=== PATIENT | male | born 1965 | race African-American/Black ===

== ENCOUNTER 2019-03-02 19:54 | Inpatient (IN) | payer MEDICAID ==
[~2019-03-02] VITALS: Ht 188 cm; Wt 70.3 kg
[2019-03-02 20:50] LABS: BASOPHILS % 0.7 % (0.0-2.0); EOSINOPHILS % 1.5 % (0.0-5.0); HEMOGLOBIN. 9.6 g/dL (14.0-18.0); LYMPHOCYTES % 19.6 % (20.0-50.0); MEAN CORPUSCULAR HEMOGLOBIN 26.1 pg (28.0-32.0); MEAN CORPUSCULAR VOLUME 84.5 fL (80.0-94.0); MEAN PLATELET VOLUME 7.5 fl (7.4-10.4); MONOCYTES % 5.8 % (2.0-8.0); NEUTROPHILS % 72.4 % (40.0-76.0); PLATELET 272 x1000/uL (130-400); RED BLOOD CELL COUNT 3.66 mill/uL (4.7-6.1); RED CELL DISTRIBUTION WIDTH 25.3 % (11.6-14.6)
[2019-03-02 21:10] LABS: CHLORIDE 105 mEq/L (98-107)
[2019-03-02 21:13] LABS: PLATELET ESTIMATE NORMAL
[2019-03-02 21:15] LABS: ETHANOL BLOOD < 10 mg/dL
[2019-03-02] MEDS ORDERED: LEVETIRACETAM 500MG PREMIX 100 ML IV ONE (21:15)
[2019-03-02 23:50] VITALS: BP 118/82
[2019-03-03] MEDS ORDERED: LORAZEPAM 2MG/ML CPJ IV PRN (01:15)
[2019-03-03] MEDS: DEXT 5%/0.45% NACL 1000ML 1,000 ML IV SCH ×2 (02:16→15:53)
[2019-03-03 04:00] VITALS: BP 122/81
[2019-03-03 06:42] LABS: BASOPHILS % 0.8 % (0.0-2.0); EOSINOPHILS % 1.7 % (0.0-5.0); HEMATOCRIT. 26.6 % (42.0-52.0); HEMOGLOBIN. 8.5 g/dL (14.0-18.0); LYMPHOCYTES % 24.6 % (20.0-50.0); MEAN CORPUSCULAR VOLUME 81.6 fL (80.0-94.0); MEAN PLATELET VOLUME 7.2 fl (7.4-10.4); MONOCYTES % 6.5 % (2.0-8.0); NEUTROPHILS % 66.4 % (40.0-76.0); PLATELET 228 x1000/uL (130-400); RED BLOOD CELL COUNT 3.26 mill/uL (4.7-6.1); RED CELL DISTRIBUTION WIDTH 25.1 % (11.6-14.6)
[2019-03-03] MEDS: MORPHINE SULFATE 2 MG/ML CPJ (NOT FOR IM USE) IV PRN ×4 (06:48→20:05)
[2019-03-03 06:50] LABS: CHLORIDE 108 mEq/L (98-107)
[2019-03-03 08:00] VITALS: BP 134/83
[2019-03-03] MEDS: LEVETIRACETAM 500 MG in SODIUM CHLORIDE 0.9% 100 ML IV SCH ×2 (09:18→20:05)
[2019-03-03] MEDS: ENOXAPARIN 40MG/0.4ML SYR SUBCUT SCH (09:18)
[2019-03-03 12:00] VITALS: BP 128/83
[2019-03-03] MEDS: LACTULOSE 20G/30ML UDC PO PRN (13:00)
[2019-03-03 16:00] VITALS: BP 122/74
[2019-03-03 20:00] VITALS: BP 130/87
[2019-03-03 22:58] LABS: CLARITY URINE CLEAR (CLEAR); COLOR URINE YELLOW (YELLOW); KETONES URINE NEGATIVE (NEGATIVE); LEUKOCYTE ESTERASE URINE NEGATIVE (NEGATIVE); NITRITE URINE NEGATIVE (NEGATIVE); OCCULT BLOOD URINE NEGATIVE (NEGATIVE); PH URINE 6.5 (4.5-8.0); PROTEIN URINE NEGATIVE (NEGATIVE); SPECIFIC GRAVITY URINE 1.008 (1.005-1.030); UROBILINOGEN URINE 0.2 E.U./dL (0.2-1.0)
[2019-03-03 23:09] LABS: CANNABINOID URINE SCREEN PRESUMTIVE POSITIVE (NEGATIVE)
[2019-03-03 23:10] LABS: *AMPHETAMINES SCREEN URINE NEGATIVE (NEGATIVE); *BARBITURATES SCREEN URINE NEGATIVE (NEGATIVE); *BENZODIAZEPINES SCREEN URINE PRESUMTIVE POSITIVE (NEGATIVE); *COCAINE SCREEN URINE NEGATIVE (NEGATIVE); METHADONE URINE SCREEN NEGATIVE (NEGATIVE); OPIATES URINE SCREEN PRESUMTIVE POSITIVE (NEGATIVE)
[2019-03-03 23:11] LABS: PHENCYCLIDINE URINE SCREEN NEGATIVE (NEGATIVE)
[2019-03-04] VITALS: BP 122/86
[2019-03-04] MEDS: MORPHINE SULFATE 2 MG/ML CPJ (NOT FOR IM USE) IV PRN ×5 (01:01→20:28)
[2019-03-04 04:00] VITALS: BP 120/87
[2019-03-04] MEDS: DEXT 5%/0.45% NACL 1000ML 1,000 ML IV SCH (05:30)
[2019-03-04 08:00] VITALS: BP_SYST 115; BP_SYST 129; BP_DIAS 72; BP_DIAS 78
[2019-03-04] MEDS: ENOXAPARIN 40MG/0.4ML SYR SUBCUT SCH (09:04)
[2019-03-04] MEDS: LEVETIRACETAM 500 MG in SODIUM CHLORIDE 0.9% 100 ML IV SCH ×2 (09:04→21:38)
[2019-03-04] MEDS ORDERED: GADOBENATE DIMEGLUMINE 529 MG/ML 10ML IV ONE (11:11)
[2019-03-04 12:00] VITALS: BP 129/79
[2019-03-04 16:00] VITALS: BP 136/79
[2019-03-04] MEDS ORDERED: HYDRALAZINE 20MG/ML VIAL IV PRN (16:00)
[2019-03-04] MEDS ORDERED: DEXAMETHASONE 4MG/ML 1ML VIAL IV SCH (18:00)
[2019-03-04] MEDS ORDERED: NON FORMULARY PATIENT HOME MED XX SCH (19:30)
[2019-03-04 20:00] VITALS: BP 109/67
[2019-03-04] MEDS: DEXAMETHASONE 4MG/ML 1ML VIAL IV SCH (21:37)
[2019-03-05] VITALS: BP 117/76
[2019-03-05] MEDS: LACTULOSE 20G/30ML UDC PO PRN ×2 (01:13→14:27)
[2019-03-05] MEDS: DEXAMETHASONE 4MG/ML 1ML VIAL IV SCH ×4 (01:25→20:10)
[2019-03-05] MEDS: MORPHINE SULFATE 2 MG/ML CPJ (NOT FOR IM USE) IV PRN ×4 (01:26→20:06)
[2019-03-05 04:00] VITALS: BP 126/74
[2019-03-05 08:00] VITALS: BP 117/75
[2019-03-05] MEDS: LEVETIRACETAM 500 MG in SODIUM CHLORIDE 0.9% 100 ML IV SCH ×2 (10:40→21:51)
[2019-03-05 12:00] VITALS: BP 133/68
[2019-03-05 16:00] VITALS: BP 117/69
[2019-03-05 20:00] VITALS: BP 133/83
[2019-03-06] VITALS (42 sets, daily range): BP systolic 84–160; BP diastolic 51–99
[2019-03-06 01:04] LABS: INR 1.1
[2019-03-06] MEDS ORDERED: BACITRACIN 50,000 UNITS/VIAL ONE (07:41)
[2019-03-06] MEDS ORDERED: THROMBIN (BOVINE) 5000 UNITS/VIAL TOP ONE (07:41)
[2019-03-06] MEDS ORDERED: NORMAL SALINE 0.9% 10 ML SYR ONE (07:41)
[2019-03-06] MEDS ORDERED: LIDOCAINE HCL/EPINEPHRINE 1%-EPI 1:100,000 20 ML VIAL ONE (07:41)
[2019-03-06 08:07] LABS: HIV SCREEN 4G Non Reactive (Non Reactive)
[2019-03-06] MEDS: LEVETIRACETAM 500 MG in SODIUM CHLORIDE 0.9% 100 ML IV SCH ×2 (09:19→20:57)
[2019-03-06] MEDS: DEXAMETHASONE 4MG/ML 1ML VIAL IV SCH ×3 (09:23→20:56)
[2019-03-06] MEDS ORDERED: FENTANYL CITRATE/PF 50MCG/ML 2ML VIAL ONE (12:00)
[2019-03-06] MEDS ORDERED: ROCURONIUM BROMIDE 10MG/ML VIAL 5ML IV ONE ×2 (12:00→12:45)
[2019-03-06] MEDS ORDERED: PROPOFOL 200MG/20ML VIAL IV ONE (12:01)
[2019-03-06] MEDS ORDERED: MIDAZOLAM HCL 2 MG/2 ML VIAL ONE (12:01)
[2019-03-06] MEDS ORDERED: GLYCOPYRROLATE 0.2 MG/ML 2ML VIAL ONE ×2 (12:01→13:33)
[2019-03-06] MEDS ORDERED: NEOSTIGMINE METHYLSULFATE 1MG/ML 10 ML VIAL ONE (12:01)
[2019-03-06] MEDS ORDERED: DEXAMETHASONE 4MG/ML 1ML VIAL ONE ×2 (12:04→12:32)
[2019-03-06] MEDS ORDERED: ONDANSETRON HCL 4MG/2ML INJ ONE (12:04)
[2019-03-06] MEDS ORDERED: MORPHINE SULFATE 4 MG/ML CPJ (NOT FOR IM USE) IV PRN ×2 (12:30→23:45)
[2019-03-06] MEDS ORDERED: MANNITOL 20% 500 ML IV ONE (12:32)
[2019-03-06] MEDS ORDERED: PHENYTOIN SODIUM 250MG/5ML VIAL IV ONE ×2 (12:32→12:44)
[2019-03-06] MEDS ORDERED: BACITRACIN 15GM TUBE TOP ONE (13:20)
[2019-03-06] MEDS ORDERED: MEPERIDINE HCL/PF 25MG/ML CPJ IV PRN (13:30)
[2019-03-06] MEDS ORDERED: ONDANSETRON HCL 4MG/2ML INJ IV PRN (13:30)
[2019-03-06] MEDS ORDERED: HYDROMORPHONE HCL/PF 2MG/ML CPJ IV PRN (13:30)
[2019-03-06] MEDS ORDERED: LABETALOL 5MG/ML SYR 20 MG/4 ML SYRINGE IV PRN (13:30)
[2019-03-06] MEDS ORDERED: CEFAZOLIN SODIUM 1000MG/VIAL IV SCH (14:00)
[2019-03-06] MEDS: MORPHINE SULFATE 2 MG/ML CPJ (NOT FOR IM USE) IV PRN (14:22)
[2019-03-06] MEDS: DEXT 5%/LACTATED RINGERS 1,000 ML IV SCH (14:30)
[2019-03-06] MEDS: NICARDIPINE 100 MG in SODIUM CHLORIDE 0.9% 60 ML IV PRN (14:41)
[2019-03-06] MEDS: PHENYTOIN SODIUM 100MG/2ML VIAL IV SCH ×2 (15:00→21:49)
[2019-03-06] MEDS ORDERED: NALOXONE INJ IV PRN (16:45)
[2019-03-06] MEDS ORDERED: HYDROMORPHONE PCA 10MG/50ML IV PRN (16:45)
[2019-03-06] MEDS: CEFAZOLIN 1000MG PREMIX 50 ML IV SCH ×2 (16:53→23:04)
[2019-03-06] MEDS: ONDANSETRON INJ IV PRN (19:35)
[2019-03-07] VITALS (93 sets, daily range): BP systolic 95–142; BP diastolic 49–80
[2019-03-07] MEDS: DEXAMETHASONE 4MG/ML 1ML VIAL IV SCH ×4 (02:37→20:28)
[2019-03-07] MEDS: PHENYTOIN SODIUM 100MG/2ML VIAL IV SCH ×3 (05:47→22:18)
[2019-03-07] MEDS: ONDANSETRON INJ IV PRN ×3 (05:47→13:52)
[2019-03-07] MEDS: DEXT 5%/LACTATED RINGERS 1,000 ML IV SCH ×2 (06:52→22:18)
[2019-03-07] MEDS: CEFAZOLIN 1000MG PREMIX 50 ML IV SCH ×3 (06:52→22:18)
[2019-03-07] MEDS: LEVETIRACETAM 500 MG in SODIUM CHLORIDE 0.9% 100 ML IV SCH ×2 (08:05→21:37)
[2019-03-07] MEDS: NICARDIPINE 100 MG in SODIUM CHLORIDE 0.9% 60 ML IV PRN ×2 (09:35→21:38)
[2019-03-07] MEDS ORDERED: METOCLOPRAMIDE HCL 10MG/2ML VIAL IV SCH (11:30)
[2019-03-07] MEDS: PANTOPRAZOLE SODIUM 40 MG/VIAL IV SCH (11:43)
[2019-03-07] MEDS: MORPHINE SULFATE 2 MG/ML CPJ (NOT FOR IM USE) IV PRN ×3 (13:26→18:23)
[2019-03-08] VITALS (77 sets, daily range): BP systolic 96–144; BP diastolic 48–98
[2019-03-08] MEDS: DEXAMETHASONE 4MG/ML 1ML VIAL IV SCH ×4 (02:27→20:25)
[2019-03-08] MEDS: MORPHINE SULFATE 2 MG/ML CPJ (NOT FOR IM USE) IV PRN ×4 (02:28→16:07)
[2019-03-08] MEDS: PHENYTOIN SODIUM 100MG/2ML VIAL IV SCH ×2 (05:40→13:47)
[2019-03-08] MEDS: CEFAZOLIN 1000MG PREMIX 50 ML IV SCH (05:40)
[2019-03-08 05:52] LABS: CHLORIDE 106 mEq/L (98-107)
[2019-03-08 08:11] LABS: BASOPHILS % 0.1 % (0.0-2.0); HEMATOCRIT. 28.5 % (42.0-52.0); HEMOGLOBIN. 9.2 g/dL (14.0-18.0); LYMPHOCYTES % 8.6 % (20.0-50.0); MEAN CORPUSCULAR HEMOGLOBIN 26.3 pg (28.0-32.0); MEAN CORPUSCULAR VOLUME 81.7 fL (80.0-94.0); MEAN PLATELET VOLUME 7.2 fl (7.4-10.4); MONOCYTES % 6.8 % (2.0-8.0); NEUTROPHILS % 84.5 % (40.0-76.0); PLATELET 225 x1000/uL (130-400); RED BLOOD CELL COUNT 3.49 mill/uL (4.7-6.1); RED CELL DISTRIBUTION WIDTH 25.9 % (11.6-14.6)
[2019-03-08] MEDS ORDERED: GADOBENATE DIMEGLUMINE 529 MG/ML 10ML IV ONE (08:12)
[2019-03-08] MEDS: LEVETIRACETAM 500 MG in SODIUM CHLORIDE 0.9% 100 ML IV SCH ×2 (08:22→21:43)
[2019-03-08] MEDS: PANTOPRAZOLE SODIUM 40 MG/VIAL IV SCH (08:22)
[2019-03-08] MEDS: NICARDIPINE 100 MG in SODIUM CHLORIDE 0.9% 60 ML IV PRN ×2 (10:40→17:43)
[2019-03-08] MEDS: ONDANSETRON INJ IV PRN (13:47)
[2019-03-08] MEDS: LOSARTAN POTASSIUM 25 MG TABLET PO SCH ×2 (13:47→21:43)
[2019-03-08] MEDS ORDERED: PHENYTOIN SODIUM EXTENDED 100MG CAPSULE PO SCH (15:00)
[2019-03-08] MEDS: DEXT 5%/LACTATED RINGERS 1,000 ML IV SCH (17:07)
[2019-03-08] MEDS: PHENYTOIN SODIUM EXTENDED 100MG CAPSULE PO SCH (21:43)
[2019-03-09] VITALS (26 sets, daily range): BP systolic 114–141; BP diastolic 50–84
[2019-03-09] MEDS: DEXAMETHASONE 4MG/ML 1ML VIAL IV SCH ×3 (01:51→15:15)
[2019-03-09] MEDS: MORPHINE SULFATE 2 MG/ML CPJ (NOT FOR IM USE) IV PRN ×3 (03:00→09:09)
[2019-03-09] MEDS: PHENYTOIN SODIUM EXTENDED 100MG CAPSULE PO SCH ×3 (05:54→22:01)
[2019-03-09 06:31] LABS: BASOPHILS % 0.1 % (0.0-2.0); HEMATOCRIT. 23.6 % (42.0-52.0); HEMOGLOBIN. 7.7 g/dL (14.0-18.0); MEAN CORPUSCULAR HEMOGLOBIN 26.5 pg (28.0-32.0); MEAN CORPUSCULAR VOLUME 80.8 fL (80.0-94.0); MONOCYTES % 8.1 % (2.0-8.0); NEUTROPHILS % 83.8 % (40.0-76.0); PLATELET 172 x1000/uL (130-400); RED BLOOD CELL COUNT 2.92 mill/uL (4.7-6.1); RED CELL DISTRIBUTION WIDTH 25.4 % (11.6-14.6)
[2019-03-09 06:42] LABS: CHLORIDE 103 mEq/L (98-107)
[2019-03-09] MEDS: PANTOPRAZOLE SODIUM 40 MG/VIAL IV SCH (08:56)
[2019-03-09] MEDS: LOSARTAN POTASSIUM 25 MG TABLET PO SCH ×2 (08:56→20:15)
[2019-03-09] MEDS: LACTULOSE 20G/30ML UDC PO PRN ×2 (08:56→22:01)
[2019-03-09] MEDS: LEVETIRACETAM 500 MG in SODIUM CHLORIDE 0.9% 100 ML IV SCH (11:26)
[2019-03-09] MEDS ORDERED: HYDRALAZINE 5 MG in SODIUM CHLORIDE 0.9% 49.5 ML IV PRN (16:15)
[2019-03-09] MEDS: LEVETIRACETAM 500MG TABLET PO SCH (20:15)
[2019-03-10] VITALS (7 sets, daily range): BP systolic 132–146; BP diastolic 72–97
[2019-03-10] MEDS: MORPHINE SULFATE 2 MG/ML CPJ (NOT FOR IM USE) IV PRN ×3 (02:24→20:02)
[2019-03-10] MEDS: PHENYTOIN SODIUM EXTENDED 100MG CAPSULE PO SCH ×2 (06:35→13:25)
[2019-03-10] MEDS: PANTOPRAZOLE SODIUM 40 MG/VIAL IV SCH (08:49)
[2019-03-10] MEDS: LACTULOSE 20G/30ML UDC PO PRN ×2 (08:49→20:01)
[2019-03-10] MEDS: DEXAMETHASONE 4MG/ML 1ML VIAL PO SCH ×3 (08:50→18:12)
[2019-03-10] MEDS: LOSARTAN POTASSIUM 25 MG TABLET PO SCH ×2 (08:50→20:01)
[2019-03-10] MEDS: LEVETIRACETAM 500MG TABLET PO SCH ×2 (08:50→20:01)
== END 2019-03-10 21:50 | disposition home or self-care (01) | DRG 21 ==
LOC: ER 19:54 → 5WST 22:20 → ENRESERV 22:58 → CANRESERV 22:58 → ENRESERV 23:01 → MICUSO 03-06 14:12 → 6EST 03-09 14:45
PROVIDERS: ADMIT Internal Medicine; ATTEND Internal Medicine
PROC: 00U207Z Supplement Dura Mater with Autologous Tissue Substitute, Open Approach (ICD-10-PCS; principal; 2019-03-07)
PROC: 00B70ZZ Excision of Cerebral Hemisphere, Open Approach (ICD-10-PCS; 2019-03-07)
PROC: 4A00X4Z Measurement of Central Nervous Electrical Activity, External Approach (ICD-10-PCS; 2019-03-07)
DX: C79.31 Secondary malignant neoplasm of brain (principal); G93.40 Encephalopathy, unspecified; G93.6 Cerebral edema; E44.1 Mild protein-calorie malnutrition; G96.0 Cerebrospinal fluid leak; D64.9 Anemia, unspecified; C18.9 Malignant neoplasm of colon, unspecified; D49.2 Neoplasm of unspecified behavior of bone, soft tissue, and skin; G40.909 Epilepsy, unspecified, not intractable, without status epilepticus; D72.819 Decreased white blood cell count, unspecified; Z86.73 Personal history of transient ischemic attack (TIA), and cerebral infarction without residual deficits; Z85.038 Personal history of other malignant neoplasm of large intestine
CPT/HCPCS: 36415; 70553; 71045; 76998; 80048; 80061; 80305; 80320; 81003; 82378; 82962; 84145; 84443; 86850; 86900; 86920; 87389; 88307; 88331; 92610; 93005; 93306; 96365; 99291; A9577; C9113; J0360; J0690; J1100; J1165; J1650; J1953; J2250; J2270; J2405; J2704; J2710; J2765; J3010; J3490; J7040; J7050; J7121; G0480

== ENCOUNTER 2019-04-14 10:40 | Emergency (ER) | payer MEDICAID ==
[~2019-04-14] VITALS: Ht 182.9 cm; Wt 74.0 kg
[2019-04-14] MEDS ORDERED: MORPHINE SULFATE 4 MG/ML CPJ (NOT FOR IM USE) IV STA (11:10)
[2019-04-14] MEDS ORDERED: ONDANSETRON HCL 4MG/2ML INJ IV STA (11:10)
[2019-04-14] MEDS ORDERED: KETOROLAC 30MG/ML VIAL IV ONE (11:15)
[2019-04-14 12:30] LABS: CLARITY URINE CLEAR (CLEAR); COLOR URINE YELLOW (YELLOW); KETONES URINE NEGATIVE (NEGATIVE); LEUKOCYTE ESTERASE URINE NEGATIVE (NEGATIVE); NITRITE URINE NEGATIVE (NEGATIVE); OCCULT BLOOD URINE NEGATIVE (NEGATIVE); PROTEIN URINE NEGATIVE (NEGATIVE); SPECIFIC GRAVITY URINE 1.012 (1.005-1.030); UROBILINOGEN URINE 0.2 E.U./dL (0.2-1.0)
[2019-04-14 12:34] LABS: CHLORIDE 100 mEq/L (98-107)
[2019-04-14 12:36] LABS: PROTHROMBIN TIME 10.4 sec (9.6-11.0)
[2019-04-14 12:37] LABS: BASOPHILS % 0.7 % (0.0-2.0); EOSINOPHILS % 3.4 % (0.0-5.0); HEMATOCRIT. 30.6 % (42.0-52.0); HEMOGLOBIN. 9.6 g/dL (14.0-18.0); LYMPHOCYTES % 11.6 % (20.0-50.0); MEAN CORPUSCULAR HEMOGLOBIN 23.8 pg (28.0-32.0); MEAN CORPUSCULAR VOLUME 75.6 fL (80.0-94.0); MEAN PLATELET VOLUME 8.3 fl (7.4-10.4); MONOCYTES % 13.8 % (2.0-8.0); NEUTROPHILS % 70.5 % (40.0-76.0); PLATELET 156 x1000/uL (130-400); RED BLOOD CELL COUNT 4.04 mill/uL (4.7-6.1); RED CELL DISTRIBUTION WIDTH 24.7 % (11.6-14.6)
[2019-04-14 13:11] LABS: PLATELET ESTIMATE NORMAL
[2019-04-14 14:25] VITALS: BP 134/80
== END 2019-04-14 17:08 | disposition home or self-care (01) ==
LOC: ER 10:40
DX: M54.6 Pain in thoracic spine (principal); D50.9 Iron deficiency anemia, unspecified; F12.10 Cannabis abuse, uncomplicated; Z85.9 Personal history of malignant neoplasm, unspecified
CPT/HCPCS: 36415; 71045; 72128; 72131; 80053; 81003; 85025; 85610; 96374; 96375; 99284; J1885; J2270; J2405; Z7610